=== PATIENT | male | born 1945 | race Caucasian/White ===

== ENCOUNTER 2018-08-11 14:29 | Observation (INO) ==
[2018-08-11] MEDS ORDERED: Sod Chloride 0.9% Inj 1,000 ML IV.SIG ONE (14:42)
[2018-08-11] MEDS ORDERED: Sod Chloride 0.9% Inj 1,000 ML IV.SIG SCH (15:00)
--- NOTE | 2018-08-11 15:13 | ED ---
HPI General Chief Complaint: Seizure Stated Complaint: Poss seizure Time Seen by Provider: 08/11/18 14:31 Source: EMS Mode of arrival: EMS Limitations: language barrier (patient is nonverbal at baseline) History of Present Illness HPI Narrative: Patient is a 72-year-old male who presents to the emergency room from a detention facility for evaluation after he had a witnessed grand mal seizure episode. Patient has history of CVA with residual right-sided deficits , he has history of seizures currently taking Keppra as well as Lamictal, reports that prior to arrival to the emergency room, patient had a seizure which lasted about 1 minute. Staff were able to catch patient and bring him to the floor during his seizure episode. Denies any trauma to his head. Patient did have an episode of urinary incontinence. EMS reports that patient was completely flaccid in his left side, reports that he was also nonverbal. Patient's is now moving his left upper extremity as well as left lower extremity following commands. Patient's daughter is at bedside reports that patient has been nonverbal, reports that he is currently at his baseline mental status. Patient's daughter reports that the last time he had a seizure was about 1 year ago. Related Data Home Medications Medication Instructions Recorded Confirmed aspirin 81 mg PO DAILY 08/11/18 08/11/18 atorvastatin 40 mg PO DAILY 08/11/18 08/11/18 cholecalciferol (vitamin D3) 1,000 unit PO DAILY 08/11/18 08/11/18 [Vitamin D3] levetiracetam 750 mg PO Q12H 08/11/18 08/11/18 sertraline 100 mg PO BID 08/11/18 08/11/18 Allergies Allergy/AdvReac Type Severity Reaction Status Date / Time No Known Allergies Allergy Verified 08/11/18 15:27 Review of Systems ROS: all other systems reviewed are negative [facility] Medical History Medical History HTN (hypertension) (Acute) TIA (transient ischemic attack) (Acute) CVA (cerebral vascular accident) (Acute) Seizure (Acute) Social History Social History Substance History: No History of Abuse Smoking Status: Former smoker How Often Do You Have a Drink Containing Alcohol: Monthly or less Recent Travel in [facility] within the Last 8 Weeks: No Recent Out of Country Travel within the Last 8 Weeks: No Exam Narrative Exam Narrative: GENERAL: patient nonverbal but is able to follow commands SKIN: Focused skin assessment warm/dry. HEAD: Atraumatic. Normocephalic. EYES: Pupils equal and round. No scleral icterus. No injection or drainage. ENT: No nasal bleeding or discharge. Mucous membranes pink and moist. NECK: Trachea midline. No JVD. CARDIOVASCULAR: Regular rate and rhythm. No murmur appreciated. RESPIRATORY: No accessory muscle use. Clear to auscultation. Breath sounds equal bilaterally. GASTROINTESTINAL: Abdomen soft, non-tender, nondistended. Hepatic and splenic margins not palpable. Patient had an episode of urinary incontinence MUSCULOSKELETAL: No obvious deformities. No clubbing. No cyanosis. No edema. NEUROLOGICAL: Awake and alert. Patient with baseline right sided deficits. PSYCHIATRIC: Appropriate mood and affect; insight and judgment normal. Course Initial Documented Vital Signs Temperature 98.0 F 08/11/18 15:27 Pulse Rate 113 H 08/11/18 15:27 Respiratory Rate 18 08/11/18 15:27 Blood Pressure 125/64 08/11/18 15:27 Pulse Oximetry 94 L 08/11/18 15:27 Last Documented Vital Signs Temperature 98.0 F 08/11/18 15:27 Pulse Rate 96 H 08/11/18 16:55 Respiratory Rate 20 08/11/18 16:55 Blood Pressure 129/70 08/11/18 16:55 Pulse Oximetry 98 08/11/18 16:55 Medical Decision Making MDM Narrative Medical decision making narrative: During the course of the patients emergency department visit, the patients history, examination, and differential diagnosis were reviewed with the patient. The patient was placed on a cardiac catheterization technician with oximetry and frequent blood pressure monitoring. The patient had an IV access obtained and blood work sent for analysis. The patient was initially provided IVF wbc 12.6, hgb 16.9, hcy 49.6, platelets 267 sodium 138, chloride 102, potassium 3.5, bicarb 19.8, bun 13, cr 1.40 ct of head: atrophy and remote infarcts chest xray: negative exam Patient is back to baseline mentation as per daughter. Patient with most likely seizure activity with Marco A's paralysis which is now resolved. Plan to discharge patient back to detention. He will return to the emergency room as needed. Medical Screen Exam Complete: Yes Emergency Medical Condition: Yes Differential Diagnosis Differential Diagnosis: Seizure with Marco A's Paralysis, CVA, ICH, electrolyte abnormality, Arrythmia Medical Records Medical records reviewed: Yes I reviewed the patient's medical records. Lab Data Result diagrams: 08/11/18 14:45 08/11/18 14:45 Lab Results 08/11/18 08/11/18 Range/Units 14:45 14:45 WBC 12.6 H (4.0-11.0) th/mm3 RBC 5.72 (4.50-5.90) mil/mm3 Hgb 16.9 (13.0-17.0) gm/dL Hct 49.6 (39.0-51.0) % MCV 86.7 (80.0-100.0) fL MCH 29.6 (27.0-34.0) pg MCHC 34.2 (32.0-36.0) % RDW 14.4 (11.6-17.2) % Plt Count 267 (150-450) th/mm3 MPV 9.1 (7.0-11.0) fL Neut % (Auto) 65.2 (16.0-70.0) % Lymph % (Auto) 25.8 (9.0-44.0) % [place] % (Auto) 7.3 (0.0-8.0) % Eos % (Auto) 1.0 (0.0-4.0) % Baso % (Auto) 0.7 (0.0-2.0) % Neut # (Auto) 8.2 H (1.8-7.7) th/mm3 Lymph # (Auto) 3.3 (1.0-4.8) th/mm3 [place] # (Auto) 0.9 (0.0-0.9) th/mm3 Eos # (Auto) 0.1 (0.0-0.4) th/mm3 Baso # (Auto) 0.1 (0.0-0.2) th/mm3 WBC Differential . Differential Comment Auto diff final Sodium 138 (136-145) meq/L Potassium 3.5 (3.5-5.1) meq/L Chloride 102 (98-107) meq/L Carbon Dioxide 19.8 L (21.0-32.0) meq/L Anion Gap 16 H (5-15) meq/L BUN 13 (7-18) mg/dL Creatinine 1.40 H (0.60-1.30) mg/dL Estimated GFR 50 L (>89) mL/min Random Glucose 156 H (74-106) mg/dL Calcium 9.2 (8.5-10.1) mg/dL Magnesium 2.1 (1.5-2.5) mg/dL Total Bilirubin 0.6 (0.2-1.0) mg/dL AST 21 (15-37) U/L ALT 37 (12-78) U/L Alkaline Phosphatase 97 (45-117) U/L Total Protein 8.4 H (6.4-8.2) g/dL Albumin 4.2 (3.4-5.0) g/dL Imaging Data Radiologist's impression: Head CT 08/11/18 14:42 There is diffuse atrophy, remote right occipital infarct, and a large area of encephalomalacia involving the left frontal, parietal, occipital and temporal lobes with ex vacuo dilatation of the left lateral ventricle, and dystrophic cortical calcifications in the left parietal occipital region. There are no fractures. No evidence of acute infarct, intracranial hemorrhage or mass. CONCLUSION: 1. Atrophy and remote infarcts. . Chest X-Ray 08/11/18 15:49 CONCLUSION: Negative examination. Discharge Plan Discharge Disposition Patient Disposition: Discharge Home Discharge Condition Condition: Stable Discharge Order Discharge Orders: Discharge Order (Routine); Ordered 08/11/18 Ordered By: Audra Caldwell Discharge Details Diagnosis: Seizure disorder, grand mal Physicians Team ED Provider: Audra Caldwell Primary Care Provider: Estela Singh Rxs /Orders / Referrals /Forms Prescriptions: No Action atorvastatin 40 mg Tablet 40 mg PO DAILY RF: 0 sertraline 100 mg Tablet 100 mg PO BID RF: 0 aspirin 81 mg Tablet,Chewable 81 mg PO DAILY RF: 0 levetiracetam 750 mg Tablet 750 mg PO Q12H RF: 0 cholecalciferol (vitamin D3) [Vitamin D3] 1,000 unit Tablet 1,000 unit PO DAILY RF: 0 Discharge Instructions Print Language: Hungarian Patient Printed Instructions: Epilepsy (ED) Additional Instructions: Please provide patient with a copy of their lab work and studies at discharge* * Please follow up with your primary care doctor in 2-3 days Return to the ER if symptoms worsen or progress Return to the ER as needed Please follow up with your neurologist in 2-3 days Discharge Interventions Interventions: Vital Signs Last Done: 08/11/18 16:55 Status ED Status: With Doctor
--- NOTE | 2018-08-11 15:32 | CT ---
EXAM DATE: 08/11/2018 3:16 PM EDT AGE/SEX: 72 years / Male INDICATIONS: Seizure. CLINICAL DATA: This is the patient's initial encounter. Patient reports that signs and symptoms have been present for 1 day and indicates a pain score of Nonresponsive. MEDICAL/SURGICAL HISTORY: Non-responsive. Non-responsive. RADIATION DOSE: 56.35 CTDI (mGy) COMPARISON: No prior exams available for comparison. TECHNIQUE: CT of the head without contrast. Using automated exposure control and adjustment of the mA and/or kV according to patient size, radiation dose was kept as low as reasonably achievable to ob tain optimal diagnostic quality images. DICOM format image data is available electronically for revi ew and comparison. FINDINGS: There is diffuse atrophy, remote right occipital infarct, and a large area of encephalomalacia involv ing the left frontal, parietal, occipital and temporal lobes with ex vacuo dilatation of the left lat eral ventricle, and dystrophic cortical calcifications in the left parietal occipital region. There a re no fractures. No evidence of acute infarct, intracranial hemorrhage or mass. CONCLUSION: 1. Atrophy and remote infarcts. . Electronically signed by: Moises Flowers MD 08/11/2018 3:31 PM EDT
[2018-08-11 16:03] LABS: Baso # (Auto) 0.1 th/mm3 (0.0-0.2); Baso % (Auto) 0.7 % (0.0-2.0); Eos # (Auto) 0.1 th/mm3 (0.0-0.4); Hematocrit 49.6 % (39.0-51.0); Hemoglobin 16.9 gm/dL (13.0-17.0); Lymph # (Auto) 3.3 th/mm3 (1.0-4.8); Lymph % (Auto) 25.8 % (9.0-44.0); Mean Corpuscular HGB Conc 34.2 % (32.0-36.0); Mean Corpuscular Hemoglobin 29.6 pg (27.0-34.0); Mean Corpuscular Volume 86.7 fL (80.0-100.0); Mean Platelet Volume 9.1 fL (7.0-11.0); Mono # (Auto) 0.9 th/mm3 (0.0-0.9); Mono % (Auto) 7.3 % (0.0-8.0); Neut # (Auto) 8.2 th/mm3 (1.8-7.7); Neut % (Auto) 65.2 % (16.0-70.0); Platelet Count 267 th/mm3 (150-450); Red Blood Count 5.72 mil/mm3 (4.50-5.90); Red Cell Distribution Width 14.4 % (11.6-17.2); White Blood Count 12.6 th/mm3 (4.0-11.0)
[2018-08-11 16:19] LABS: Albumin 4.2 g/dL (3.4-5.0); Anion Gap 16 meq/L (5-15); Aspartate Aminotransferase 21 U/L (15-37); Blood Urea Nitrogen 13 mg/dL (7-18); Calcium 9.2 mg/dL (8.5-10.1); Carbon Dioxide 19.8 meq/L (21.0-32.0); Chloride 102 meq/L (98-107); Glomerular Filtration Rate 50 mL/min (>89); Glucose,Random 156 mg/dL (74-106); Magnesium 2.1 mg/dL (1.5-2.5); Potassium 3.5 meq/L (3.5-5.1); Sodium 138 meq/L (136-145)
[2018-08-11 16:20] LABS: Alanine Aminotransferase 37 U/L (12-78)
--- NOTE | 2018-08-11 16:21 | XR ---
EXAM DATE: 08/11/2018 4:15 PM EDT AGE/SEX: 72 years / Male INDICATIONS: Shortness of breath. CLINICAL DATA: This is the patient's initial encounter. Patient reports that signs and symptoms have been present for 1 day and indicates a pain score of Nonresponsive. MEDICAL/SURGICAL HISTORY: Stroke. None. COMPARISON: No prior exams available for comparison. FINDINGS: A single AP view of the chest demonstrates the lungs to be symmetrically aerated without evidence of mass, infiltrate or effusion. The cardiomediastinal contours are unremarkable. Osseous structures a re intact. CONCLUSION: Negative examination. Electronically signed by: Moises Flowers MD 08/11/2018 4:20 PM EDT
[2018-08-11 16:22] LABS: Alkaline Phosphatase 97 U/L (45-117); Total Protein 8.4 g/dL (6.4-8.2)
[2018-08-11] MEDS ORDERED: levETIRAcetam 1000mg/100mL Inj 100 ML IV.SIG ONE (19:10)
[2018-08-11] MEDS ORDERED: Bisacodyl 10 MG Supp RECTAL PRN (19:32)
[2018-08-11] MEDS ORDERED: Acetaminophen 325 MG Tablet PO PRN (19:32)
--- NOTE | 2018-08-11 19:36 | P.HPIM ---
History of Present Illness Primary Care Physician: Estela Singh MD History of Present Illness: This is a 72-year-old male with a PMH of HTN, h/o CVA w/ Right-Sided Deficit and h/o Seizure Disorder who was sent from [facility] for seizure activity. Per report, staff noted pt to have episode of tonic-clonic activity lasting approx 1min w/ left-sided flaccidity following seizure and urinary incontinence. Unable to obtain history from pt as he is mostly non-verbal at baseline, however mental status seemingly at baseline per pt's Daughter. While in ER, however, pt had 2nd episode of seizure activity lasting approx 1min, s/p Ativan 2mg IV, currently post-ictal. Per review of home medications, pt is on Lamictal 150mg bid and Keppra 750mg bid. On arrival, BP 125/64, HR 113, O2 sat 94% on RA, Afebrile. Creatinine 1.40, no previous labs for comparison. W BC 12.6. CT Head with remote right occipital infarct, large area of encephalomalacia involving left frontal, parietal, occipital and temporal lobes with ex vacuo dilatation of left lateral ventricle and dystrophic cortical calcifications in left parietal occipital region, no acute infarct or hemorrhage. CXR negative. - Diagnosis (1) Seizure (2) H/O: CVA (cerebrovascular accident) (3) Renal insufficiency Review of Systems PAST FAMILY HISTORY: Unknown. unobtainable due to mental status PMFSH - History History Provided By: Patient - Medical History Medical History: Medical History (Last Updated 08/11/18 @ 15:34 by Ad Marroquin) HTN (hypertension) TIA (transient ischemic attack) CVA (cerebral vascular accident) Seizure - Tobacco History Smoking Status: Former smoker - Alcohol History How Often Do You Have a Drink Containing Alcohol: Monthly or less - Substance Use History Substance History: No History of Abuse - Travel History Recent Travel in the [place] Within the Last 8 Weeks: No Recent Travel Out of the Country Within the Last 8 Weeks: No - Immunization History Tetanus Immunization: Unsure Hx Influenza Vaccine This Season: No Medications and Allergies Active Medications: Active Medications Acetaminophen (Tylenol) 650 mg PO Q4H PRN PRN Reason: Temp > 100.4 Al Hydroxide/Mg Hydroxide (Milk Of Magnesia Liq) 30 ml PO Q12H PRN PRN Reason: Mild Constipation Aspirin (Aspirin Chew) 81 mg PO DAILY [facility] Atorvastatin Calcium (Lipitor) 40 mg PO DAILY [facility] Bisacodyl (Dulcolax Supp) 10 mg RECTAL DAILY PRN PRN Reason: SEVERE CONSITIPATION Sodium Chloride (Ns Inj) 1,000 mls @ 0 mls/hr IV.SIG BOLUS ALIX Stop: 08/12/18 15:01 Sodium Chloride (Ns Inj) 1,000 mls @ 100 mls/hr IV.CONT .Q10H [facility] Lactulose (Lactulose Liq) 30 ml PO DAILY PRN PRN Reason: SEVERE CONSITIPATION Lorazepam (Ativan Inj) 1 mg IV.PUSH Q5M PRN PRN Reason: SEIZURE Non-Formulary Medication (Levetiracetam [Levetiracetam]) 1,000 mg PO Q12H [facility] Ondansetron HCl (Zofran Inj) 4 mg IV.PUSH Q6H PRN PRN Reason: NAUSEA OR VOMITING Senna/Docusate Sodium (Maya-Colace) 1 tab PO BID [facility] Sennosides (Senokot) 17.2 mg PO Q12H PRN PRN Reason: Moderate Constipation Sertraline HCl (Zoloft) 100 mg PO BID [facility] Sodium Chloride (Ns Flush) 2 ml IV.FLUSH PRN PRN PRN Reason: FLUSH AFTER USING IV ACCESS Allergies Allergy/AdvReac Type Severity Reaction Status Date / Time No Known Allergies Allergy Verified 08/11/18 15:27 Home Medications Medication Instructions Recorded Confirmed Type aspirin 81 mg PO DAILY 08/11/18 08/11/18 History atorvastatin 40 mg PO DAILY 08/11/18 08/11/18 History cholecalciferol (vitamin D3) 1,000 unit PO DAILY 08/11/18 08/11/18 History [Vitamin D3] levetiracetam 750 mg PO Q12H 08/11/18 08/11/18 History sertraline 100 mg PO BID 08/11/18 08/11/18 History Exam Vital signs: Vital Signs 08/11/18 15:27 08/11/18 15:36 08/11/18 15:39 Temperature 98.0 F Pulse Rate 113 H Respiratory Rate 18 18 Blood Pressure 125/64 Pulse Oximetry 94 L 94 L 08/11/18 16:55 Temperature Pulse Rate 96 H Respiratory Rate 20 Blood Pressure 129/70 Pulse Oximetry 98 Intake & Output 08/11/18 08/11/18 08/12/18 06:59 18:59 06:59 Weight 91.138 kg Narrative: PE: GENERAL: Elderly white male in no acute distress, post ictal. SKIN: Focused skin assessment warm and dry. HEENT: PERRLA, EOMI. No scleral icterus or conjunctival pallor. No lid lag or facial droop. CARDIOVASCULAR: Regular rate and rhythm. No obvious murmurs to auscultation. No chest tenderness to palpation. RESPIRATORY: No obvious rhonchi or wheezing. Clear to auscultation. Breath sounds equal bilaterally. GASTROINTESTINAL: Abdomen soft, non-tender, nondistended. BS normal. MUSCULOSKELETAL: Extremities without clubbing, cyanosis, or edema. No obvious deformities. NEUROLOGICAL: Post-ictal, lethargic. No new neurologic findings, h/o right- sided deficits. PSYCHIATRIC: Unable to assess due to post ictal state Results - Labs CBC & Chem 7: 08/11/18 14:45 08/11/18 14:45 Labs: Short CBC 08/11/18 Range/Units 14:45 WBC 12.6 H (4.0-11.0) th/mm3 Hgb 16.9 (13.0-17.0) gm/dL Hct 49.6 (39.0-51.0) % Plt Count 267 (150-450) th/mm3 BMP 08/11/18 14:45 Sodium 138 Potassium 3.5 Chloride 102 Carbon Dioxide 19.8 L BUN 13 Creatinine 1.40 H Calcium 9.2 Liver Function 08/11/18 Range/Units 14:45 Total Bilirubin 0.6 (0.2-1.0) mg/dL AST 21 (15-37) U/L ALT 37 (12-78) U/L Alkaline Phosphatase 97 (45-117) U/L Albumin 4.2 (3.4-5.0) g/dL - Imaging Impressions Head CT 08/11/18 14:42 There is diffuse atrophy, remote right occipital infarct, and a large area of encephalomalacia involving the left frontal, parietal, occipital and temporal lobes with ex vacuo dilatation of the left lateral ventricle, and dystrophic cortical calcifications in the left parietal occipital region. There are no fractures. No evidence of acute infarct, intracranial hemorrhage or mass. CONCLUSION: 1. Atrophy and remote infarcts. . Chest X-Ray 08/11/18 15:49 CONCLUSION: Negative examination. Caprini VTE Risk Assessment Caprini VTE Risk Assessment: No/Low Risk (score <= 1) Caprini Risk Assessment Model: Point Value = 1 Point Value = 2 Point Value = 3 Point Value = 5 Age 41-60 Minor surgery BMI > 25 kg/m2 Swollen legs Varicose veins or History of unexplained or recurrent spontaneous Oral contraceptives or hormone replacement Sepsis (< 1 month) Serious lung disease, including pneumonia (< 1 month) Abnormal pulmonary function Acute myocardial infarction Congestive heart failure (< 1 month) History of inflammatory bowel disease Medical patient at bed rest Age 61-74 Arthroscopic surgery Major open surgery (> 45 min) Laparoscopic surgery (> 45 min) Malignancy Confined to bed (> 72 hours) Immobilizing plaster cast Central venous access Age >= 75 History of VTE Family history of VTE Factor V Leiden Prothrombin [id number] Lupus anticoagulant Anticardiolipin antibodies Elevated serum homocysteine Heparin-induced thrombocytopenia Other congenital or acquired thrombophilia Stroke (< 1 month) Elective arthroplasty Hip, pelvis, or leg fracture Acute spinal cord injury (< 1 month) Prophylaxis Regimen: Total Risk Factor Score Risk Level Prophylaxis Regimen 0-1 Low Early ambulation 2 Moderate Order ONE of the following: *Sequential Compression Device (SCD) *Heparin 5000 units SQ BID 3-4 Higher Order ONE of the following medications: *Heparin 5000 units SQ TID *Enoxaparin/Lovenox 40 mg SQ daily (WT < 150 kg, CrCl > 30 mL/min) *Enoxaparin/Lovenox 30 mg SQ daily (WT < 150 kg, CrCl > 10-29 mL/min) *Enoxaparin/Lovenox 30 mg SQ BID (WT < 150 kg, CrCl > 30 mL/min) AND/OR *Sequential Compression Device (SCD) 5 or more Highest Order ONE of the following medications: *Heparin 5000 units SQ TID (Preferred with Epidurals) *Enoxaparin/Lovenox 40 mg SQ daily (WT < 150 kg, CrCl > 30 mL/min) *Enoxaparin/Lovenox 30 mg SQ daily (WT < 150 kg, CrCl > 10-29 mL/min) *Enoxaparin/Lovenox 30 mg SQ BID (WT < 150 kg, CrCl > 30 mL/min) AND *Sequential Compression Device (SCD) Assessment and Plan - Assessment (1) Seizure Code(s): R56.9 - Unspecified convulsions Status: Acute (2) H/O: CVA (cerebrovascular accident) Code(s): Z86.73 - Personal history of transient ischemic attack (TIA), and cerebral infarction without residual deficits Status: Acute (3) Renal insufficiency Code(s): N28.9 - Disorder of kidney and ureter, unspecified Status: Acute - Plan A/P: 1. Seizure: h/o Seizure Disorder, s/p seizure at SNF w/ return to baseline mental status, 2nd seizure while in ER lasting approx 1min, s/p Ativan 2mg IV, currently post-ictal. CT Head w/ previous infarct and significant atrophy, no new findings, images reviewed. S/p Keppra 1gm in ER. On Lamictal 150mg bid and Keppra 750mg bid at home, will increase Keppra to 1gm bid, consult Neurology for further recommendations, Seizure Precautions, Ativan prn. 2. H/o CVA: w/ residual right-sided deficits, mostly non-verbal at baseline. EMS notes episode of left-sided flaccidity following seizure suggestive of Marco A' s Paralysis, no new CVA noted on CT. 3. Renal Insufficiency: Creatinine 1.40, no previous labs for comparison. IVF for hydration, check U/a to eval for possible UTI, monitor I/O, repeat labs in am. 4. DVT Prophylaxis: SCD/Teds 5. Social work for d/c planning as needed 6. Case discussed w/ ER physician at length, labs/records/imaging reviewed by me.
[2018-08-11] MEDS: Sod Chloride 0.9% Inj 1,000 ML IV.CONT SCH (20:35)
[2018-08-11] MEDS ORDERED: levETIRAcetam 500 MG Tablet PO SCH (21:00)
[2018-08-11 22:15] LABS: Bilirubin,Urine Negative (Negative); Clarity,Urine Clear (Clear); Color,Urine Yellow (Yellw/Straw); Glucose,Urine (UA) Negative (Negative); Hyaline Casts,Urine 5 /lpf (0-3); Leukocyte Esterase,Urine Negative (Negative); Mucus,Urine Few /lpf (Occasional); Nitrite,Urine Negative (Negative); Specific Gravity,Urine 1.014 (1.002-1.035)
[2018-08-12] MEDS: Sertraline 100 MG Tablet PO SCH ×4 (00:52→23:11)
[2018-08-12] MEDS: Senna/Docusate Sodium 8.6/50 MG Tablet PO SCH ×3 (00:52→23:08)
[2018-08-12] MEDS: Sod Chloride 0.9% Inj 1,000 ML IV.CONT SCH ×2 (07:31→17:01)
--- NOTE | 2018-08-12 07:51 | P.PN ---
Subjective Interval history: Patient doing well, reports that he has had no seizures overnight. Per daughter patient is at baseline and lives in a SNF. Patient had been out of Seizure meds for a few days. Physical Exam Vital signs: Vital Signs 08/11/18 15:27 08/11/18 15:36 08/11/18 15:39 Temperature 98.0 F Pulse Rate 113 H Respiratory Rate 18 18 Blood Pressure 125/64 Pulse Oximetry 94 L 94 L 08/11/18 16:55 08/11/18 19:05 08/11/18 20:00 Temperature Pulse Rate 96 H 130 H Respiratory Rate 20 26 H 20 Blood Pressure 129/70 177/98 H Pulse Oximetry 98 98 98 08/11/18 20:37 08/11/18 23:37 08/12/18 04:00 Temperature 99.0 F 98.1 F Pulse Rate 117 H 102 H 60 Respiratory Rate 18 20 16 Blood Pressure 127/68 140/81 133/67 Pulse Oximetry 99 99 100 08/12/18 04:22 08/12/18 06:41 Temperature Pulse Rate Respiratory Rate Blood Pressure Pulse Oximetry 98 98 Intake & Output 08/11/18 08/12/18 08/12/18 18:59 06:59 18:59 Intake Total 2046 / 2046 875 / 875 Output Total 0 / 0 Balance 2046 875 / 875 Weight 91.138 kg Intake: IV 1100 / 1100 875 / 875 NS Inj 1,000 ML @ 100 mls/hr IV 875 / 875 .CONT .Q10H ALIX Rx#:[id number] Keppra 1000 mg/100 mL Premix 100 / 100 100 ML @ 400 mls/hr IV.SIG ONCE ONE Rx#:[id number] Oral 30 Other 917 / 917 Output: Urine Amount (Catheter) 0 / 0 Condom 0 / 0 Other: Other Intake Source Saline Solution # Voids 2 Narrative: GENERAL: well nourished male, in NAD, lying comfortably in bed SKIN: Warm and dry. HEAD: Normocephalic. EYES: No scleral icterus. No injection or drainage. NECK: Supple, trachea midline. No JVD or lymphadenopathy. CARDIOVASCULAR: Regular rate and rhythm without murmurs, gallops, or rubs. RESPIRATORY: Breath sounds equal bilaterally. No accessory muscle use. GASTROINTESTINAL: Abdomen soft, non-tender, nondistended. MUSCULOSKELETAL: No cyanosis, or edema. BACK: Nontender without obvious deformity. No CVA tenderness. NEUROLOGICAL: Awake and alert. Global aphasia, right facial weakness, right spastic hemiparesis. Baseline. - Urinary Catheter Management Condom Cath placed during this visit: no Results - Labs CBC & Chem 7: 08/12/18 09:53 08/12/18 09:53 Laboratory Results - last 24 hr 08/11/18 08/11/18 08/11/18 14:45 14:45 22:00 WBC 12.6 H RBC 5.72 Hgb 16.9 Hct 49.6 MCV 86.7 MCH 29.6 MCHC 34.2 RDW 14.4 Plt Count 267 MPV 9.1 Neut % (Auto) 65.2 Lymph % (Auto) 25.8 [place] % (Auto) 7.3 Eos % (Auto) 1.0 Baso % (Auto) 0.7 Neut # (Auto) 8.2 H Lymph # (Auto) 3.3 [place] # (Auto) 0.9 Eos # (Auto) 0.1 Baso # (Auto) 0.1 WBC Differential . Differential Comment Auto diff final Sodium 138 Potassium 3.5 Chloride 102 Carbon Dioxide 19.8 L Anion Gap 16 H BUN 13 Creatinine 1.40 H Estimated GFR 50 L Random Glucose 156 H Calcium 9.2 Magnesium 2.1 Total Bilirubin 0.6 AST 21 ALT 37 Alkaline Phosphatase 97 Total Protein 8.4 H Albumin 4.2 Urine Color Yellow Urine Clarity Clear Urine pH 5.0 Ur Specific [place] 1.014 Urine Protein Negative Urine Glucose (UA) Negative Urine Ketones Negative Urine Occult Blood Small H Urine Nitrate Negative Urine Bilirubin Negative Urine Urobilinogen Less than 2 Ur Leukocyte Esterase Negative Urine RBC 1 Urine WBC 2 Hyaline Casts 5 Urine Mucus Few H Micro UA Comment Culture not ind Ur Microscopic Review Not Reportable Urine Culture Comments Culture not ind - Imaging Impressions Head CT 08/11/18 14:42 There is diffuse atrophy, remote right occipital infarct, and a large area of encephalomalacia involving the left frontal, parietal, occipital and temporal lobes with ex vacuo dilatation of the left lateral ventricle, and dystrophic cortical calcifications in the left parietal occipital region. There are no fractures. No evidence of acute infarct, intracranial hemorrhage or mass. CONCLUSION: 1. Atrophy and remote infarcts. . Chest X-Ray 08/11/18 15:49 CONCLUSION: Negative examination. Assessment and Plan - Assessment (1) Seizure Code(s): R56.9 - Unspecified convulsions Status: Acute (2) H/O: CVA (cerebrovascular accident) Code(s): Z86.73 - Personal history of transient ischemic attack (TIA), and cerebral infarction without residual deficits Status: Chronic (3) Renal insufficiency Code(s): N28.9 - Disorder of kidney and ureter, unspecified Status: Resolved - Plan 72 y/o CM with PMHx of CVA with residual deficits and Seizure Disorder admitted for IP of Seizure and ANGELICA, HD#2 1. Seizure: Hx of Seizure Disorder, s/p seizure at SNF as he was out of meds since 08/08 - patient at baseline mental status, confirmed with daughter - 2nd seizure while in ER lasting approx 1min, s/p Ativan 2mg IV, currently post -ictal - CT Head w/ previous infarct and significant atrophy, no new findings, images reviewed. s/p Keppra 1gm in ER. - Consult Neurology for further recommendations, Seizure Precautions, Ativan PRN. Appreciate assistance with mgmt. -Per Neuro reccs- Breakthrough seizure in a patient with left greater than right hemispheric strokes, aphasia chronic right spastic hemiparesis. -PT/OT ordered -Checking Keppra level NEURO Recommendations Order EEG, Increase Keppra 1gm TID and Lamictal 200mg BID Further neuro imaging to exclude a new infarct 2. Hx of CVA: w/ residual right-sided deficits, mostly non-verbal at baseline. No new CVA noted on CT. Cont. ASA and statin. 3. Acute Renal Insufficiency: improved, Creatinine 0.95 today from 1.40, no previous labs for comparison. IVF for hydration. Neg U/A. 4. Anxiety/Depression: Cont. home Sertraline. 5. DVT Prophylaxis: SCD/Jh's 6. Case mgmt consulted for D/C planning as needed 7. Dispo: awaiting Neuro reccs Code Status: full Discussed Condition With: patient and RN
[2018-08-12] MEDS ORDERED: levETIRAcetam 500 MG Tablet PO SCH (09:00)
[2018-08-12 10:18] LABS: Baso # (Auto) 0.1 th/mm3 (0.0-0.2); Baso % (Auto) 0.9 % (0.0-2.0); Eos # (Auto) 0.1 th/mm3 (0.0-0.4); Eos % (Auto) 0.6 % (0.0-4.0); Hematocrit 43.4 % (39.0-51.0); Lymph # (Auto) 1.9 th/mm3 (1.0-4.8); Lymph % (Auto) 14.4 % (9.0-44.0); Mean Corpuscular HGB Conc 34.5 % (32.0-36.0); Mean Corpuscular Hemoglobin 29.5 pg (27.0-34.0); Mean Corpuscular Volume 85.6 fL (80.0-100.0); Mean Platelet Volume 8.7 fL (7.0-11.0); Mono # (Auto) 1.2 th/mm3 (0.0-0.9); Neut # (Auto) 9.8 th/mm3 (1.8-7.7); Neut % (Auto) 75.1 % (16.0-70.0); Platelet Count 129 th/mm3 (150-450); Red Blood Count 5.07 mil/mm3 (4.50-5.90); Red Cell Distribution Width 14.3 % (11.6-17.2); White Blood Count 13.1 th/mm3 (4.0-11.0)
[2018-08-12 10:42] LABS: Platelet Morphology Normal (Normal)
[2018-08-12 10:45] LABS: Alanine Aminotransferase 27 U/L (12-78); Albumin 3.2 g/dL (3.4-5.0); Alkaline Phosphatase 74 U/L (45-117); Anion Gap 10 meq/L (5-15); Aspartate Aminotransferase 21 U/L (15-37); Blood Urea Nitrogen 10 mg/dL (7-18); Calcium 7.9 mg/dL (8.5-10.1); Carbon Dioxide 23.1 meq/L (21.0-32.0); Chloride 105 meq/L (98-107); Glomerular Filtration Rate 78 mL/min (>89); Glucose,Random 113 mg/dL (74-106); Potassium 3.7 meq/L (3.5-5.1); Total Protein 6.7 g/dL (6.4-8.2)
[2018-08-12 10:47] LABS: Sodium 138 meq/L (136-145)
--- NOTE | 2018-08-12 11:29 | P.CONNEU ---
History of Present Illness Service: Neurology Primary Care Provider: Estela Singh MD Chief Complaint: Seizure History of Present Illness: 72-year-old history of previous stroke living in a alf history of seizures or breakthrough seizure brought in further evaluation. Apparently takes Keppra Lamictal out of at his facility. CAT scan did not show any new lesion but old strokes. Patient poor historian chart reviewed. Mild renal insufficiency which is improved. Rest her electrolytes sodium calcium magnesium in range. Glucose slightly elevated. Review of Systems unobtainable due to mental status PMFSH - History History Provided By: Patient - Medical History Medical History: Medical History (Last Updated 08/11/18 @ 15:34 by Ad Marroquin) HTN (hypertension) TIA (transient ischemic attack) CVA (cerebral vascular accident) Seizure - Tobacco History Smoking Status: Never smoker - Alcohol History How Often Do You Have a Drink Containing Alcohol: Unable to Obtain - Substance Use History Substance History: No History of Abuse - Travel History Recent Travel in the [place] Within the Last 8 Weeks: No Recent Travel Out of the Country Within the Last 8 Weeks: No - Immunization History Tetanus Immunization: Unsure Hx Influenza Vaccine This Season: No Medications and Allergies Active Medications: Active Medications Acetaminophen (Tylenol) 650 mg PO Q4H PRN PRN Reason: Temp > 100.4 Al Hydroxide/Mg Hydroxide (Milk Of Magnesia Liq) 30 ml PO Q12H PRN PRN Reason: Mild Constipation Aspirin (Aspirin Chew) 81 mg PO DAILY [facility] Last Admin: 08/12/18 09:06 Dose: 81 mg Atorvastatin Calcium (Lipitor) 40 mg PO DAILY [facility] Last Admin: 08/12/18 09:06 Dose: 40 mg Bisacodyl (Dulcolax Supp) 10 mg RECTAL DAILY PRN PRN Reason: SEVERE CONSITIPATION Sodium Chloride (Ns Inj) 1,000 mls @ 0 mls/hr IV.SIG BOLUS ALIX Stop: 08/12/18 15:01 Sodium Chloride (Ns Inj) 1,000 mls @ 100 mls/hr IV.CONT .Q10H [facility] Last Admin: 08/12/18 07:31 Dose: 100 mls/hr Lactulose (Lactulose Liq) 30 ml PO DAILY PRN PRN Reason: SEVERE CONSITIPATION Levetiracetam (Keppra) 1,000 mg PO BID [facility] Last Admin: 08/12/18 09:05 Dose: 1,000 mg Lorazepam (Ativan Inj) 1 mg IV.PUSH Q5M PRN PRN Reason: SEIZURE Ondansetron HCl (Zofran Inj) 4 mg IV.PUSH Q6H PRN PRN Reason: NAUSEA OR VOMITING Senna/Docusate Sodium (Maya-Colace) 1 tab PO BID [facility] Last Admin: 08/12/18 09:05 Dose: 1 tab Sennosides (Senokot) 17.2 mg PO Q12H PRN PRN Reason: Moderate Constipation Sertraline HCl (Zoloft) 100 mg PO BID [facility] Last Admin: 08/12/18 09:06 Dose: 100 mg Sodium Chloride (Ns Flush) 2 ml IV.FLUSH PRN PRN PRN Reason: FLUSH AFTER USING IV ACCESS Allergies Allergy/AdvReac Type Severity Reaction Status Date / Time No Known Allergies Allergy Verified 08/11/18 15:27 Home Medications Medication Instructions Recorded Confirmed Type aspirin 81 mg PO DAILY 08/11/18 08/11/18 History atorvastatin 40 mg PO DAILY 08/11/18 08/11/18 History cholecalciferol (vitamin D3) 1,000 unit PO DAILY 08/11/18 08/11/18 History [Vitamin D3] levetiracetam 750 mg PO Q12H 08/11/18 08/11/18 History sertraline 100 mg PO BID 08/11/18 08/11/18 History Exam Vital signs: Vital Signs 08/11/18 15:27 08/11/18 15:36 08/11/18 15:39 Temperature 98.0 F Pulse Rate 113 H Respiratory Rate 18 18 Blood Pressure 125/64 Pulse Oximetry 94 L 94 L 08/11/18 16:55 08/11/18 19:05 08/11/18 20:00 Temperature Pulse Rate 96 H 130 H Respiratory Rate 20 26 H 20 Blood Pressure 129/70 177/98 H Pulse Oximetry 98 98 98 08/11/18 20:37 08/11/18 23:37 08/12/18 04:00 Temperature 99.0 F 98.1 F Pulse Rate 117 H 102 H 60 Respiratory Rate 18 20 16 Blood Pressure 127/68 140/81 133/67 Pulse Oximetry 99 99 100 08/12/18 04:22 08/12/18 06:41 08/12/18 07:57 Temperature Pulse Rate 95 H Respiratory Rate Blood Pressure Pulse Oximetry 98 98 08/12/18 08:33 Temperature Pulse Rate Respiratory Rate Blood Pressure Pulse Oximetry 98 Intake & Output 08/11/18 08/12/18 08/12/18 18:59 06:59 18:59 Intake Total 2046 875 / 875 Output Total 0 / 0 200 / 200 Balance 2046 675 / 675 Weight 91.138 kg Intake: IV 1100 / 1100 875 / 875 NS Inj 1,000 ML @ 100 mls/hr IV 875 / 875 .CONT .Q10H ALIX Rx#:[id number] Keppra 1000 mg/100 mL Premix 100 / 100 100 ML @ 400 mls/hr IV.SIG ONCE ONE Rx#:[id number] Oral Other 91 917 Output: Urine 200 / 200 Urine Amount (Catheter) 0 / 0 Condom 0 / 0 Other: Other Intake Source Saline Solution # Voids 2 1 Narrative: GENERAL: in NAD, looks well SKIN: Warm and dry. HEAD: Atraumatic. Normocephalic. EYES: Pupils equal and round. No scleral icterus. ENT: No nasal bleeding or discharge. Mucous membranes pink and moist. NECK: Trachea midline. No JVD. CARDIOVASCULAR: Regular rate and rhythm. RESPIRATORY: No accessory muscle use. GASTROINTESTINAL: Abdomen soft, non-tender, nondistended. MUSCULOSKELETAL: Extremities without clubbing, cyanosis, or edema. No obvious deformities. NEUROLOGICAL: Awake and alert. Global aphasia, right facial weakness, right spastic hemiparesis PSYCHIATRIC: Calm - Constitutional no acute distress - Routine HEENT Exam Head: Present: normocephalic Results - Labs CBC & Chem 7: 08/12/18 09:53 08/12/18 09:53 Labs: Laboratory Results - last 24 hr 08/11/18 08/11/18 08/11/18 14:45 14:45 22:00 WBC 12.6 H RBC 5.72 Hgb 16.9 Hct 49.6 MCV 86.7 MCH 29.6 MCHC 34.2 RDW 14.4 Plt Count 267 MPV 9.1 Prelim Diff (Auto) Neut % (Auto) 65.2 Lymph % (Auto) 25.8 [place] % (Auto) 7.3 Eos % (Auto) 1.0 Baso % (Auto) 0.7 Neut # (Auto) 8.2 H Lymph # (Auto) 3.3 [place] # (Auto) 0.9 Eos # (Auto) 0.1 Baso # (Auto) 0.1 WBC Differential . Diff Scan Differential Comment Auto diff final Platelet Estimate Platelet Morphology Hematology Comments Sodium 138 Potassium 3.5 Chloride 102 Carbon Dioxide 19.8 L Anion Gap 16 H BUN 13 Creatinine 1.40 H Estimated GFR 50 L Random Glucose 156 H Calcium 9.2 Magnesium 2.1 Total Bilirubin 0.6 AST 21 ALT 37 Alkaline Phosphatase 97 Total Protein 8.4 H Albumin 4.2 Urine Color Yellow Urine Clarity Clear Urine pH 5.0 Ur Specific [place] 1.014 Urine Protein Negative Urine Glucose (UA) Negative Urine Ketones Negative Urine Occult Blood Small H Urine Nitrate Negative Urine Bilirubin Negative Urine Urobilinogen Less than 2 Ur Leukocyte Esterase Negative Urine RBC 1 Urine WBC 2 Hyaline Casts 5 Urine Mucus Few H Micro UA Comment Culture not ind Ur Microscopic Review Not Reportable Urine Culture Comments Culture not ind 08/12/18 08/12/18 09:53 09:53 WBC 13.1 H RBC 5.07 Hgb 15.0 Hct 43.4 MCV 85.6 MCH 29.5 MCHC 34.5 RDW 14.3 Plt Count 129 L D MPV 8.7 Prelim Diff (Auto) Slide review pending Neut % (Auto) 75.1 H Lymph % (Auto) 14.4 [place] % (Auto) 9.0 H Eos % (Auto) 0.6 Baso % (Auto) 0.9 Neut # (Auto) 9.8 H Lymph # (Auto) 1.9 [place] # (Auto) 1.2 H Eos # (Auto) 0.1 Baso # (Auto) 0.1 WBC Differential . Diff Scan Auto diff confirmed Differential Comment . Platelet Estimate Low L Platelet Morphology Normal Hematology Comments Sodium 138 Potassium 3.7 Chloride 105 Carbon Dioxide 23.1 Anion Gap 10 BUN 10 Creatinine 0.95 Estimated GFR 78 L Random Glucose 113 H Calcium 7.9 L D Magnesium Total Bilirubin 0.8 AST 21 ALT 27 Alkaline Phosphatase 74 Total Protein 6.7 D Albumin 3.2 L D Urine Color Urine Clarity Urine pH Ur Specific [place] Urine Protein Urine Glucose (UA) Urine Ketones Urine Occult Blood Urine Nitrate Urine Bilirubin Urine Urobilinogen Ur Leukocyte Esterase Urine RBC Urine WBC Hyaline Casts Urine Mucus Micro UA Comment Ur Microscopic Review Urine Culture Comments - Imaging Impressions Head CT 08/11/18 14:42 There is diffuse atrophy, remote right occipital infarct, and a large area of encephalomalacia involving the left frontal, parietal, occipital and temporal lobes with ex vacuo dilatation of the left lateral ventricle, and dystrophic cortical calcifications in the left parietal occipital region. There are no fractures. No evidence of acute infarct, intracranial hemorrhage or mass. CONCLUSION: 1. Atrophy and remote infarcts. . Chest X-Ray 08/11/18 15:49 CONCLUSION: Negative examination. Review/Management - Diagnosis (1) Chronic left arterial ischemic stroke, MCA (middle cerebral artery) Code(s): I69.30 - Unspecified sequelae of cerebral infarction Status: Acute Current Visit: Yes (2) Vascular dementia Code(s): F01.50 - Vascular dementia without behavioral disturbance Status: Acute Current Visit: Yes (3) Seizure disorder, grand mal Code(s): G40.409 - Other generalized epilepsy and epileptic syndromes, not intractable, without status epilepticus Status: Acute Current Visit: Yes (4) Seizure Code(s): R56.9 - Unspecified convulsions Status: Acute Current Visit: Yes (5) Renal insufficiency Code(s): N28.9 - Disorder of kidney and ureter, unspecified Status: Acute Current Visit: Yes - Review/Management Plan: Breakthrough seizure in a patient with left greater than right hemispheric strokes, aphasia chronic right spastic hemiparesis Recommendations EEG Increase Keppra and Lamictal dose Further neuro imaging to exclude a new infarct Therapy Continue aspirin Follow exam
--- NOTE | 2018-08-12 12:15 | US ---
EXAM DATE: 08/12/2018 12:12 PM EDT AGE/SEX: 72 years / Male INDICATIONS: Cerebrovascular accident. CLINICAL DATA: This is the patient's initial encounter. Patient reports that signs and symptoms have been present for 1 day and indicates a pain score of 0/10. MEDICAL/SURGICAL HISTORY: . TIA. CVA. HTN. Seizure. None. COMPARISON: No prior exams available for comparison. VELOCITY PARAMETERS: ICA/CCA Ratio: Right 1.3 , Left 1.3 ICA: Right 107 cm/sec, Left 81 cm/sec CCA: Right 81 cm/sec, Left 65 cm/sec ECA: Right 88 cm/sec, Left 87 cm/sec Vertebral: Right 29 cm/sec antegrade, Left 93 cm/sec antegrade FINDINGS: RIGHT CAROTID: There is no evidence for a hemodynamically significant carotid stenosis. Minimal int imal hyperplasia is present with scattered calcific plaque. LEFT CAROTID: There is no evidence for a hemodynamically significant carotid stenosis. Minimal inti mal hyperplasia is present with scattered calcific plaque. Flow is antegrade in both vertebral arteries. There are no ancillary masses or adenopathy. CONCLUSION: Negative examination for a hemodynamically significant carotid stenosis. Barrington Sung MD FACR Electronically signed by: Barrington Sung MD 08/12/2018 12:13 PM EDT
[2018-08-12] MEDS: levETIRAcetam 500 MG Tablet PO SCH ×2 (13:10→18:55)
[2018-08-12] MEDS: lamoTRIgine 100 MG Tablet PO SCH ×2 (13:10→23:08)
--- NOTE | 2018-08-12 14:30 | MR ---
EXAM DATE: 08/12/2018 2:23 PM EDT AGE/SEX: 72 years / Male INDICATIONS: Seizures. CLINICAL DATA: This is the patient's initial encounter. Patient reports that signs and symptoms have been present for 1 day and indicates a pain score of 0/10. MEDICAL/SURGICAL HISTORY: Hypertension. Leukemia. . Left great toe. [place] [facility] [place] [facility] [place]. . TECHNIQUE: Multiplanar, multisequence examination of the brain was performed without contrast. FINDINGS: Reidentified are sequelae of previous left cerebral infarct with a large amount of encephalomalacia i nvolving the left cerebral hemisphere with associated ex vacuo dilatation of the left lateral ventric le posterior and temporal horns. There is blood layering and degeneration of the left middle cerebral peduncle. There is moderate patchy and confluent increased FLAIR signal in the periventricular white matter, left frontal and parietal subcortical white matter and centrum semiovale most likely related to chronic microvascular ischemic disease and scoliosis from previous infarct. There is also evidenc e of susceptibility artifact at site of previous left cerebral infarction characteristic with remote blood products. There is no evidence for acute infarction on diffusion-weighted imaging. No masses ar e seen. Remote right occipital infarct. CONCLUSION: 1. Remote infarcts, atrophy and white matter disease. Electronically signed by: Moises Flowers MD 08/12/2018 2:28 PM EDT
--- NOTE | 2018-08-12 14:31 | MR ---
EXAM DATE: 08/12/2018 2:21 PM EDT AGE/SEX: 72 years / Male INDICATIONS: Seizures. CLINICAL DATA: This is the patient's initial encounter. Patient reports that signs and symptoms have been present for 1 day and indicates a pain score of 0/10. MEDICAL/SURGICAL HISTORY: Hypertension. Leukemia. . Left great toe. [place]PAR[place]: [facility] [place], [place]/12/2018. . TECHNIQUE: 3D [id number] MRA was performed. Source images, multiplanar STS MIP, and 3D volum e MIP reconstructions were reviewed. FINDINGS: There is excellent visualization of the major intracranial arteries out to the second-order branch ve ssels. There is no evidence for aneurysm, vessel truncation or stenosis, and no evidence for vascula r malformation. The left middle cerebral artery is markedly attenuated in caliber with diminutive monica w past its origin. CONCLUSION: 1. Diminutive flow within the left middle cerebral artery otherwise unremarkable. Electronically signed by: Moises Flowers MD 08/12/2018 2:29 PM EDT
[2018-08-13] MEDS: Sod Chloride 0.9% Inj 1,000 ML IV.CONT SCH ×2 (03:40→13:16)
[2018-08-13 06:06] LABS: Hematocrit 42.6 % (39.0-51.0); Hemoglobin 14.4 gm/dL (13.0-17.0); Mean Corpuscular HGB Conc 33.9 % (32.0-36.0); Mean Corpuscular Hemoglobin 29.2 pg (27.0-34.0); Mean Corpuscular Volume 86.1 fL (80.0-100.0); Mean Platelet Volume 8.5 fL (7.0-11.0); Platelet Count 202 th/mm3 (150-450); Red Blood Count 4.95 mil/mm3 (4.50-5.90); White Blood Count 11.1 th/mm3 (4.0-11.0)
[2018-08-13 06:21] LABS: Albumin 3.1 g/dL (3.4-5.0); Anion Gap 10 meq/L (5-15); Aspartate Aminotransferase 16 U/L (15-37); Blood Urea Nitrogen 12 mg/dL (7-18); Calcium 7.8 mg/dL (8.5-10.1); Carbon Dioxide 22.4 meq/L (21.0-32.0); Chloride 106 meq/L (98-107); Glomerular Filtration Rate 88 mL/min (>89); Glucose,Random 93 mg/dL (74-106); Potassium 3.6 meq/L (3.5-5.1); Sodium 138 meq/L (136-145)
[2018-08-13 06:23] LABS: Alanine Aminotransferase 23 U/L (12-78)
[2018-08-13 06:24] LABS: Alkaline Phosphatase 71 U/L (45-117); Total Protein 6.6 g/dL (6.4-8.2)
[2018-08-13] MEDS: levETIRAcetam 500 MG Tablet PO SCH ×2 (09:01→13:16)
[2018-08-13] MEDS: Sertraline 100 MG Tablet PO SCH (09:02)
[2018-08-13] MEDS: Senna/Docusate Sodium 8.6/50 MG Tablet PO SCH (09:02)
--- NOTE | 2018-08-13 10:33 | P.PNNEU ---
Subjective Subjective Comments: No acute events Active Medications: Active Medications Acetaminophen (Tylenol) 650 mg PO Q4H PRN PRN Reason: Temp > 100.4 Al Hydroxide/Mg Hydroxide (Milk Of Magnesia Liq) 30 ml PO Q12H PRN PRN Reason: Mild Constipation Aspirin (Aspirin Chew) 81 mg PO DAILY [facility] Last Admin: 08/13/18 09:02 Dose: 81 mg Atorvastatin Calcium (Lipitor) 40 mg PO DAILY [facility] Last Admin: 08/13/18 09:01 Dose: 40 mg Bisacodyl (Dulcolax Supp) 10 mg RECTAL DAILY PRN PRN Reason: SEVERE CONSITIPATION Sodium Chloride (Ns Inj) 1,000 mls @ 100 mls/hr IV.CONT .Q10H [facility] Last Admin: 08/13/18 03:40 Dose: 100 mls/hr Lactulose (Lactulose Liq) 30 ml PO DAILY PRN PRN Reason: SEVERE CONSITIPATION Lamotrigine (Lamictal) 200 mg PO BID [facility] Last Admin: 08/12/18 23:08 Dose: 200 mg Levetiracetam (Keppra) 1,000 mg PO TID [facility] Last Admin: 08/13/18 09:01 Dose: 1,000 mg Lorazepam (Ativan Inj) 1 mg IV.PUSH Q5M PRN PRN Reason: SEIZURE Ondansetron HCl (Zofran Inj) 4 mg IV.PUSH Q6H PRN PRN Reason: NAUSEA OR VOMITING Senna/Docusate Sodium (Maya-Colace) 1 tab PO BID [facility] Last Admin: 08/13/18 09:02 Dose: Not Given Sennosides (Senokot) 17.2 mg PO Q12H PRN PRN Reason: Moderate Constipation Sertraline HCl (Zoloft) 100 mg PO BID [facility] Last Admin: 08/13/18 09:02 Dose: 100 mg Sodium Chloride (Ns Flush) 2 ml IV.FLUSH PRN PRN PRN Reason: FLUSH AFTER USING IV ACCESS Allergies/Adverse Reactions: Allergies Allergy/AdvReac Type Severity Reaction Status Date / Time No Known Allergies Allergy Verified 08/11/18 15:27 Review of Systems unobtainable due to mental condition Physical Exam Vital signs: Vital Signs 08/12/18 11:04 08/12/18 11:44 08/12/18 12:00 Temperature 97.9 F Pulse Rate 61 64 Respiratory Rate 12 Blood Pressure 102/56 L Pulse Oximetry 95 99 08/12/18 16:00 08/12/18 16:37 08/12/18 20:00 Temperature 98.0 F 98.2 F Pulse Rate 68 61 76 Respiratory Rate 16 18 Blood Pressure 123/64 145/80 H Pulse Oximetry 97 96 08/12/18 23:48 08/13/18 04:00 08/13/18 08:28 Temperature 98 F 98.7 F 98.1 F Pulse Rate 75 73 77 Respiratory Rate 17 16 20 Blood Pressure 111/59 L 121/60 114/58 L Pulse Oximetry 95 96 96 08/13/18 08:47 Temperature Pulse Rate Respiratory Rate Blood Pressure Pulse Oximetry 93 L Intake & Output 08/12/18 08/13/18 08/13/18 18:59 06:59 18:59 Intake Total 1404 / 1404 471 / 471 Output Total 200 / 200 Balance 1204 / 1204 471 / 471 Weight 91.13 kg Intake: IV 1404 / 1404 471 / 471 NS Inj 1,000 ML @ 100 mls/hr IV 1404 / 1404 471 / 471 .CONT .Q10H [facility]IX Rx#:[id number] Output: Urine 200 / 200 Other: # Voids 1 Narrative: GENERAL: in NAD, looks well SKIN: Warm and dry. HEAD: Atraumatic. Normocephalic. EYES: Pupils equal and round. No scleral icterus. ENT: No nasal bleeding or discharge. Mucous membranes pink and moist. NECK: Trachea midline. No JVD. CARDIOVASCULAR: Regular rate and rhythm. RESPIRATORY: No accessory muscle use. GASTROINTESTINAL: Abdomen soft, non-tender, nondistended. MUSCULOSKELETAL: Extremities without clubbing, cyanosis, or edema. No obvious deformities. NEUROLOGICAL: Awake and alert. Global aphasia, temp say 1 word inconsistently following right facial weakness, right spastic hemiparesis PSYCHIATRIC: Calm - Urinary Catheter Management Condom Cath placed during this visit: no Objective Laboratory Results - last 24 hr 08/12/18 08/12/18 08/13/18 09:53 09:53 05:30 WBC 13.1 H RBC 5.07 Hgb 15.0 Hct 43.4 MCV 85.6 MCH 29.5 MCHC 34.5 RDW 14.3 Plt Count 129 L D MPV 8.7 Prelim Diff (Auto) Slide review pending Neut % (Auto) 75.1 H Lymph % (Auto) 14.4 [place] % (Auto) 9.0 H Eos % (Auto) 0.6 Baso % (Auto) 0.9 Neut # (Auto) 9.8 H Lymph # (Auto) 1.9 [place] # (Auto) 1.2 H Eos # (Auto) 0.1 Baso # (Auto) 0.1 WBC Differential . Diff Scan Auto diff confirmed Differential Comment . Platelet Estimate Low L Platelet Morphology Normal Hematology Comments Sodium 138 138 Potassium 3.7 3.6 Chloride 105 106 Carbon Dioxide 23.1 22.4 Anion Gap 10 10 BUN 10 12 Creatinine 0.95 0.85 Estimated GFR 78 L 88 L Random Glucose 113 H 93 Calcium 7.9 L D 7.8 L Total Bilirubin 0.8 1.1 H AST 21 16 ALT 27 23 Alkaline Phosphatase 74 71 Total Protein 6.7 D 6.6 Albumin 3.2 L D 3.1 L 08/13/18 05:36 WBC 11.1 H RBC 4.95 Hgb 14.4 Hct 42.6 MCV 86.1 MCH 29.2 MCHC 33.9 RDW 14.0 Plt Count 202 D MPV 8.5 Prelim Diff (Auto) Neut % (Auto) Lymph % (Auto) [place] % (Auto) Eos % (Auto) Baso % (Auto) Neut # (Auto) Lymph # (Auto) [place] # (Auto) Eos # (Auto) Baso # (Auto) WBC Differential Diff Scan Differential Comment Platelet Estimate Platelet Morphology Hematology Comments Sodium Potassium Chloride Carbon Dioxide Anion Gap BUN Creatinine Estimated GFR Random Glucose Calcium Total Bilirubin AST ALT Alkaline Phosphatase Total Protein Albumin Review/Management - Diagnosis (1) Chronic left arterial ischemic stroke, MCA (middle cerebral artery) Code(s): I69.30 - Unspecified sequelae of cerebral infarction Status: Acute Current Visit: Yes (2) Vascular dementia Code(s): F01.50 - Vascular dementia without behavioral disturbance Status: Acute Current Visit: Yes (3) Seizure disorder, grand mal Code(s): G40.409 - Other generalized epilepsy and epileptic syndromes, not intractable, without status epilepticus Status: Acute Current Visit: Yes (4) Seizure Code(s): R56.9 - Unspecified convulsions Status: Acute Current Visit: Yes (5) Renal insufficiency Code(s): N28.9 - Disorder of kidney and ureter, unspecified Status: Resolved Current Visit: Yes - Review/Management Plan: Breakthrough seizure in a patient with left greater than right hemispheric strokes, aphasia chronic right spastic hemiparesis MRI brain no acute stroke MRA brain shows left MCA stenosis. Carotid ultrasound no significant vaso- occlusive disease Recommendations EEG; no active seizures Keppra and Lamictal dose recently increased Further neuro imaging to exclude a new infarct Therapy Continue aspirin Discharge planning from neurologic standpoint back to his facility Should have follow-up levels of Keppra Lamictal and outpatient follow-up
--- NOTE | 2018-08-13 10:45 | MG ---
cc: Luis Enrique Hawkins MD EEG RECORD NUMBER: [id number] Generalized 1-3 Hz delta activity, 10-20 microvolts. Frontal muscle artifact. Occasional theta frequencies and subtle spindles. Limited driving with photic stimulation. Slow eye movements. Single-lead EKG showing sinus rhythm. INTERPRETATION: Mild to moderate encephalopathy with sleep state. Clinical correlation. MD FÁTIMA Zambrano/finesse/julio , 07:46 AM , 07:51 AM MTDPerla
[2018-08-13] MEDS: lamoTRIgine 100 MG Tablet PO SCH (10:55)
[2018-08-13 11:51] VITALS: BP 116/64; PULSE 69; RESP 16; TEMP 98; O2SAT 94
[2018-08-13] MEDS ORDERED: Aspirin 325 MG Tablet PO SCH (12:00)
--- NOTE | 2018-08-13 12:47 | P.PN ---
Subjective Interval history: Patient doing well overnight per RN, F/V/S well. No concerns. Physical Exam Vital signs: Vital Signs 08/12/18 16:00 08/12/18 16:37 08/12/18 20:00 Temperature 98.0 F 98.2 F Pulse Rate 68 61 76 Respiratory Rate 16 18 Blood Pressure 123/64 145/80 H Pulse Oximetry 97 96 08/12/18 23:48 08/13/18 04:00 08/13/18 08:28 Temperature 98 F 98.7 F 98.1 F Pulse Rate 75 73 77 Respiratory Rate 17 16 20 Blood Pressure 111/59 L 121/60 114/58 L Pulse Oximetry 95 96 96 08/13/18 08:47 08/13/18 11:51 Temperature 98.0 F Pulse Rate 69 Respiratory Rate 16 Blood Pressure 116/64 Pulse Oximetry 93 L 94 L Intake & Output 08/12/18 08/13/18 08/13/18 18:59 06:59 18:59 Intake Total 1404 / 1404 471 / 471 Output Total 200 / 200 Balance 1204 / 1204 471 / 471 Weight 91.13 kg Intake: IV 1404 / 1404 471 / 471 NS Inj 1,000 ML @ 100 mls/hr IV 1404 / 1404 471 / 471 .CONT .Q10H [facility] Rx#:[id number] Output: Urine 200 / 200 Other: # Voids 1 Narrative: GENERAL: male, in NAD, lying in bed SKIN: Warm and dry. HEENT: Atraumatic. Normocephalic. Pupils equal and round. No scleral icterus. MOM. NECK: Trachea midline. No JVD. CARDIOVASCULAR: Regular rate and rhythm. RESPIRATORY: No accessory muscle use. GASTROINTESTINAL: Abdomen soft, non-tender, nondistended. MUSCULOSKELETAL: Extremities without clubbing, cyanosis, or edema. No obvious deformities. NEUROLOGICAL: Awake and alert. Global aphasia, says yes but does not follow command. Right facial weakness, right spastic hemiparesis. PSYCHIATRIC: Calm, pleasant - Urinary Catheter Management Condom Cath placed during this visit: no Results - Labs CBC & Chem 7: 08/13/18 05:36 08/13/18 05:30 Laboratory Results - last 24 hr 08/13/18 08/13/18 05:30 05:36 WBC 11.1 H RBC 4.95 Hgb 14.4 Hct 42.6 MCV 86.1 MCH 29.2 MCHC 33.9 RDW 14.0 Plt Count 202 D MPV 8.5 Sodium 138 Potassium 3.6 Chloride 106 Carbon Dioxide 22.4 Anion Gap 10 BUN 12 Creatinine 0.85 Estimated GFR 88 L Random Glucose 93 Calcium 7.8 L Total Bilirubin 1.1 H AST 16 ALT 23 Alkaline Phosphatase 71 Total Protein 6.6 Albumin 3.1 L - Imaging Impressions Head MRI 08/12/18 00:00 CONCLUSION: 1. Remote infarcts, atrophy and white matter disease. Head MRA 08/12/18 11:30 CONCLUSION: 1. Diminutive flow within the left middle cerebral artery otherwise unremarkable. Assessment and Plan - Assessment (1) Seizure Code(s): R56.9 - Unspecified convulsions Status: Chronic (2) H/O: CVA (cerebrovascular accident) Code(s): Z86.73 - Personal history of transient ischemic attack (TIA), and cerebral infarction without residual deficits Status: Chronic (3) Renal insufficiency Code(s): N28.9 - Disorder of kidney and ureter, unspecified Status: Resolved - Plan 72 y/o CM with PMHx of CVA with residual deficits and Seizure Disorder admitted for IP of Seizure and ANGELICA, HD#2 1. Seizure: Hx of Seizure Disorder, s/p seizure at SNF as he was out of meds since 08/08 - patient at baseline mental status, confirmed with daughter - 2nd seizure while in ER lasting approx 1min, s/p Ativan 2mg IV, currently post -ictal - CT Head w/ previous infarct and significant atrophy, no new findings, images reviewed. s/p Keppra 1gm in ER. - Neurology managing, seizure Precautions, Ativan PRN. Appreciate assistance with mgmt. -Per Neuro reccs- Breakthrough seizure in a patient with left greater than right hemispheric strokes, aphasia chronic right spastic hemiparesis. -PT/OT ordered NEURO Recommendations Order EEG, Increase Keppra 1gm TID and Lamictal 200mg BID Further neuro imaging to exclude a new infarct PT/OT Continue aspirin Discharge planning from neurologic standpoint back to his facility Should have follow-up levels of Keppra Lamictal and outpatient follow-up 2. Hx of CVA: w/ residual right-sided deficits, mostly non-verbal at baseline. No new CVA noted on CT. Cont. ASA and statin. 3. Acute Renal Insufficiency: improved, Creatinine 0.85 today from 1.40 on admission, no previous labs for comparison. s/p IVF's for hydration. Neg U/A. 4. Anxiety/Depression: Cont. home Sertraline. 5. DVT Prophylaxis: SCD/Jh's 6. Case mgmt consulted for D/C planning as needed 7. Dispo: D/C pending Rhea Angel acceptance, cleared from Neuro standpoint and medically Code Status: full Discussed Condition With: patient, RN, and case mgmt
--- NOTE | 2018-08-13 14:28 | ECHRPT ---
CONCLUSIONS The left ventricular systolic function is normal with an estimated ejection fraction in the range of 55-60% Normal left ventricular size and wll thickness. No regional wall abnormalities. No siginificant valvular stenosis or regurgitation. The estimated pulmonary arterial pressure is 33 mmHg. Technically difficult study. No prior echo for comparision. BP: / HR: Rhythm: MEASUREMENTS (Male / Female) Normal Values Technical Quality:Technically difficult study 2D ECHO LV Diastolic Diameter PLAX 4.5 cm 4.2 - 5.9 / 3.9 - 5.3 cm LV Systolic Diameter PLAX 3.2 cm IVS Diastolic Thickness 0.9 cm 0.6 - 1.0 / 0.6 - 0.9 cm LVPW Diastolic Thickness 0.9 cm 0.6 - 1.0 / 0.6 - 0.9 cm LV Relative Wall Thickness 0.4 RV Internal Dim ED PLAX 2.7 cm LVOT Diameter 1.9 cm Aortic Root Diameter 3.3 cm LA Systolic Diameter LX 3.0 cm 3.0 - 4.0 / 2.7 - 3.8 cm DOPPLER AV Peak Velocity 99.9 cm/s AV Peak Gradient 4.0 mmHg LVOT Peak Velocity 83.4 cm/s LVOT Peak Gradient 2.8 mmHg AV Area Cont Eq pk 2.4 cm Mitral E Point Velocity 75.5 cm/s Mitral A Point Velocity 70.6 cm/s Mitral E to A Ratio 1.1 LV E' Lateral Velocity 7.6 cm/s Mitral E to LV E' Lateral Ratio 9.9 LV E' Septal Velocity 6.0 cm/s Mitral E to LV E' Septal Ratio 12.5 TR Peak Velocity 240.0 cm/s TR Peak Gradient 23.0 mmHg Right Atrial Pressure 10.0 mmHg Pulmonary Artery Systolic Pressu 33.0 mmHg Right Ventricular Systolic Press 33.0 mmHg PV Peak Velocity 122.0 cm/s PV Peak Gradient 6.0 mmHg FINDINGS LEFT VENTRICLE Normal left ventricular size. Wall thickness is normal. The left ventricular systolic function is normal with an estimated ejection fraction in the range of 55-60%. Grade 2 Diastolic Dysfunction. RIGHT VENTRICLE Normal right ventricular size and systolic function. LEFT ATRIUM The left atrial size is normal. RIGHT ATRIUM The right atrial size is normal. ATRIAL SEPTUM Normal atrial septal thickness without atrial level shunting by limited color doppler interrogation. AORTA The aortic root and proximal ascending aorta are normal in size on limited imaging. MITRAL VALVE Mitral annular calcification is present. AORTIC VALVE Calcification of the non-coronary cusp. TRICUSPID VALVE There is trace tricuspid valve regurgitation. The estimated pulmonary arterial pressure is 33 mmHg. PULMONARY VALVE No pulmonary valve regurgitation or stenosis. VESSELS The inferior vena cava is normal in size. PERICARDIUM No pericardial effusion. Savita Blackwood MD (Electronically Signed) Final Date:13 August 2018 14:27
== END 2018-08-13 17:25 ==
LOC: NEPC 14:29 → NEDA 14:29 → NEPFCDU 22:20
PROVIDERS: ADMIT Family Medicine; ATTEND Family Medicine